=== PATIENT | male | born 1970 | race Caucasian/White ===

== ENCOUNTER 2017-07-02 23:41 | Inpatient (IN) | payer OTHER ==
[~2017-07-02] VITALS: Ht 175.3 cm; Wt 125.5 kg
[~2017-07-02 23:41] MED LIST: ALBUTEROL SULF8.5 GM IH; CLONAZEPAM0.5 MG PO; CYMBALTA60 MG PO; DIVALPROEX SOD250 M1 PO; DIVALPROEX SOD500 MG PO; LEVAQUIN750 MG PO; LIOTHYRONINE SO5 MCG PO; LORTAB 5-325 M1 EACH PO; MOTRIN600 MG PO; PREDNISONE20 MG PO; PROVENTIL HFA6.7 GM IH; REMERON30 M2 PO; REMERON45 MG PO; ROZEREM8 MG PO; ZITHROMAX Z-PA250 MG PO
[2017-07-03] VITALS (23 sets, daily range): BP systolic 86–126; BP diastolic 52–86
[2017-07-03 00:35] LABS: APPEARANCE CLEAR ((CLEAR)); BILIRUBIN NEGATIVE; BLOOD NEGATIVE; COLOR YELLOW ((YELLOW)); GLUCOSE (STRIP) NEGATIVE; KETONES NEGATIVE; LEUKOCYTES NEGATIVE; NITRITE NEGATIVE; PROTEIN (STRIP) NEGATIVE; SPECIFIC GRAVITY 1.015 (1.000-1.030); UCUL ADDED? NO; UROBILINOGEN 0.2 MG/DL (0.2-1.0)
[2017-07-03 00:38] LABS: BASOPHIL (%) 0.8 % (0-1); BASOPHIL COUNT 0.1 K/uL (0-0.1); EOSINOPHIL (%) 3.5 % (0-5); EOSINOPHIL COUNT 0.3 K/uL (0-0.3); HEMATOCRIT 41.5 % (38.0-50.0); HEMOGLOBIN 13.8 G/DL (12.5-16.6); IMMATURE GRANULOCYTE (%) 0.5 % (0.0-0.7); LYMPHOCYTE COUNT 1.9 K/uL (1.0-2.8); MCH 29.9 PG (29.0-34.0); MCHC 33.3 G/DL (30.0-36.0); MCV 89.8 FL (86-99); MONOCYTE (%) 6.3 % (3-12); MONOCYTE COUNT 0.5 K/uL (0-0.8); NEUTROPHIL (%) 63.9 % (45-76); NEUTROPHIL COUNT 4.7 K/uL (1.8-6.4); PLATELET COUNT 218 K/uL (156-360); RBC DIS.WIDTH-CV 12.9 % (11.8-14.6); RBC DIS.WIDTH-SD 42.1 % (39-53); RED BLOOD COUNT 4.62 M/uL (4.00-5.50); WHITE BLOOD COUNT 7.4 K/uL (4.1-10.2)
[2017-07-03 00:41] LABS: BASE EXCESS -4.9 mEq/L (-3 to +3); BICARBONATE 24.4 mEq/L (22-26); CARBOXY HGB 1.7 % (0-5); COMMENTS - BLOOD GASES C+; DEVICE VENT; FI02 100 %; MECHANICAL RATE 14 resp/min; METHEMOGLOBIN 0.8 % (0-1.5); MODE AC; PCO2 64 mm Hg (35-45); PEEP 5 CM/H20; PO2 194 mm Hg (80-100); SITE RR; TIDAL VOLUME 500 ML; TOTAL RESP RATE 14 resp/min; pH 7.19 (7.35-7.45)
[2017-07-03 00:45] LABS: AMPHETAMINE NEGATIVE (500 ng/mL); BARBITURATES NEGATIVE (200 ng/mL); BENZODIAZEPINES NEGATIVE (150 ng/mL); BUPRENORPHINE NEGATIVE (10 ng/mL); COCAINE NEGATIVE (150 ng/mL); METHADONE NEGATIVE (200 ng/mL); METHAMPHETAMINE NEGATIVE (500 ng/mL); OPIATES (MORPHINE) NEGATIVE (100 ng/mL); OXYCODONE NEGATIVE (100 ng/mL); PHENCYCLIDINE NEGATIVE (25 ng/mL); PROPOXYPHENE NEGATIVE (300 ng/mL); THC CANNABINOIDS NEGATIVE (50 ng/mL); TRICYCLIC ANTIDEPRESSANTS PRESUMPTIVE POSITIVE (300 ng/mL)
[2017-07-03 00:48] LABS: ALBUMIN 3.4 g/dL (3.2-4.8); CHLORIDE 103 mEq/L (99-109); POTASSIUM 3.9 mEq/L (3.7-5.4); SODIUM 135 mEq/L (136-147)
[2017-07-03 00:50] LABS: GLUCOSE 148 mg/dL (70-99)
[2017-07-03 00:51] LABS: TOTAL PROTEIN 6.5 g/dL (6.4-8.3)
[2017-07-03 00:52] LABS: TOTAL BILIRUBIN 0.3 mg/dL (0.0-1.0)
[2017-07-03 00:53] LABS: SERUM ETHYL ALCOHOL < 10 mg/dL
[2017-07-03 00:54] LABS: CREATININE 1.2 mg/dL (0.6-1.3); GFR ESTIMATE (CALCULATED) > 59 mL/min/ (58.99-99999)
[2017-07-03 00:55] LABS: ALKALINE PHOSPHATASE 77 IU/L (3-129)
[2017-07-03 00:56] LABS: AST (GOT) 15 IU/L (2-34); UREA NITROGEN (BUN) 12 mg/dL (9-23)
[2017-07-03 00:57] LABS: SALICYLATE < 5.0 MG/DL (15-30)
[2017-07-03 00:58] LABS: ACETAMINOPHEN (TYLENOL) < 10 mcg/mL (10-30); ALT (GPT) 13 IU/L (3-49); CREATINE KINASE 145 IU/L (1-294); TOTAL CK 145 IU/L (1-294)
[2017-07-03 01:04] LABS: CK-MB 1.2 ng/mL (0.0-4.9); CKMB RELATIVE INDEX 0.8 (0.0-3.9)
[2017-07-03] MEDS ORDERED: PRAZOSIN HCL1 MG PO (01:43)
[2017-07-03] MEDS ORDERED: ZOLOFT50 MG PO (01:44)
[2017-07-03] MEDS ORDERED: WELLBUTRIN XL150 MG PO (01:45)
[2017-07-03] MEDS ORDERED: ZOLOFT100 MG PO (01:48)
[2017-07-03] MEDS ORDERED: LAMOTRIGINE100 M1 PO (01:49)
[2017-07-03] MEDS ORDERED: SEROQUEL50 MG PO (01:49)
[2017-07-03] MEDS ORDERED: LATUDA20 MG PO (01:52)
[2017-07-03] MEDS ORDERED: LATUDA40 MG PO (01:54)
[2017-07-03 02:15] LABS: BASE EXCESS -6.3 mEq/L (-3 to +3); CARBOXY HGB 0.8 % (0-5); METHEMOGLOBIN 0.9 % (0-1.5)
[2017-07-03 02:16] LABS: PCO2 55 mm Hg (35-45); pH 7.21 (7.35-7.45)
[2017-07-03 02:17] LABS: COMMENTS - BLOOD GASES C+; DEVICE VENT; FI02 100 %; MECHANICAL RATE 14 resp/min; MODE AC; PEEP 5 CM/H20; SITE RR; TIDAL VOLUME 500 ML; TOTAL RESP RATE 14 resp/min
[2017-07-03 03:00] LABS: TROP-I INTERPRETATION NEGATIVE; TROPONIN-I < 0.01 ng/mL (0.0-0.30)
[2017-07-03 05:34] LABS: BASE EXCESS -9.3 mEq/L (-3 to +3); BICARBONATE 19.4 mEq/L (22-26); CARBOXY HGB 1.5 % (0-5); COMMENTS - BLOOD GASES C+A+; DEVICE VENT; FI02 100 %; MECHANICAL RATE 18 resp/min; METHEMOGLOBIN 1.5 % (0-1.5); MODE AC; PCO2 52 mm Hg (35-45); PO2 238 mm Hg (80-100); SITE LR; TOTAL RESP RATE 31 resp/min
[2017-07-03 05:35] LABS: PEEP 5 CM/H20; TIDAL VOLUME 500 ML; pH 7.18 (7.35-7.45)
[2017-07-03 05:59] LABS: BASOPHIL (%) 0.2 % (0-1); EOSINOPHIL (%) 0.6 % (0-5); EOSINOPHIL COUNT 0.1 K/uL (0-0.3); HEMATOCRIT 43.8 % (38.0-50.0); HEMOGLOBIN 13.8 G/DL (12.5-16.6); IMMATURE GRANULOCYTE (%) 0.2 % (0.0-0.7); LYMPHOCYTE (%) 9.4 % (15-42); LYMPHOCYTE COUNT 0.9 K/uL (1.0-2.8); MCHC 31.5 G/DL (30.0-36.0); MONOCYTE (%) 2.3 % (3-12); MONOCYTE COUNT 0.2 K/uL (0-0.8); NEUTROPHIL (%) 87.3 % (45-76); NEUTROPHIL COUNT 8.3 K/uL (1.8-6.4); PLATELET COUNT 247 K/uL (156-360); RBC DIS.WIDTH-SD 43.7 % (39-53); RED BLOOD COUNT 4.76 M/uL (4.00-5.50); WHITE BLOOD COUNT 9.5 K/uL (4.1-10.2)
[2017-07-03 06:27] LABS: CHLORIDE 106 MEQ/L (99-109); MAGNESIUM 1.8 mg/dl (1.3-2.7); SODIUM 140 MEQ/L (136-147)
[2017-07-03 06:28] LABS: POTASSIUM 4.8 MEQ/L (3.7-5.4)
[2017-07-03 06:33] LABS: CREATININE 1.4 MG/DL (0.6-1.3); GFR ESTIMATE (CALCULATED) 57 mL/min/ (58.99-99999); GLUCOSE 133 mg/dL (70-99); PHOSPHORUS 5.1 mg/dL (2.5-4.9); UREA NITROGEN (BUN) 13 mg/dL (9-23)
[2017-07-04] VITALS (27 sets, daily range): BP systolic 98–165; BP diastolic 53–77
[2017-07-04 04:15] LABS: BASOPHIL (%) 0.1 % (0-1); EOSINOPHIL (%) 0 % (0-5); HEMOGLOBIN 11.9 G/DL (12.5-16.6); IMMATURE GRANULOCYTE (%) 0.7 % (0.0-0.7); LYMPHOCYTE (%) 2.8 % (15-42); LYMPHOCYTE COUNT 0.4 K/uL (1.0-2.8); MCH 29.5 PG (29.0-34.0); MCHC 33.1 G/DL (30.0-36.0); MCV 89.3 FL (86-99); MONOCYTE (%) 3.1 % (3-12); MONOCYTE COUNT 0.5 K/uL (0-0.8); NEUTROPHIL (%) 93.3 % (45-76); NEUTROPHIL COUNT 14.2 K/uL (1.8-6.4); PLATELET COUNT 222 K/uL (156-360); RBC DIS.WIDTH-CV 13.5 % (11.8-14.6); RBC DIS.WIDTH-SD 44.5 % (39-53); RED BLOOD COUNT 4.03 M/uL (4.00-5.50); WHITE BLOOD COUNT 15.2 K/uL (4.1-10.2)
[2017-07-04 04:29] LABS: CHLORIDE 109 mEq/L (99-109); POTASSIUM 4.5 mEq/L (3.7-5.4); SODIUM 140 mEq/L (136-147)
[2017-07-04 04:30] LABS: MAGNESIUM 2.4 mg/dL (1.3-2.7)
[2017-07-04 04:31] LABS: GLUCOSE 169 mg/dL (70-99)
[2017-07-04 04:35] LABS: CREATININE 1.8 mg/dL (0.6-1.3); GFR ESTIMATE (CALCULATED) 43 mL/min/ (58.99-99999); PHOSPHORUS 2.5 mg/dL (2.5-4.9)
[2017-07-04 04:36] LABS: UREA NITROGEN (BUN) 19 mg/dL (9-23)
[2017-07-05 03:40] VITALS: BP 117/71
[2017-07-05 08:12] VITALS: BP 128/67
[2017-07-05 10:36] LABS: CHLORIDE 109 MEQ/L (99-109); CREATININE 1.6 MG/DL (0.6-1.3); GFR ESTIMATE (CALCULATED) 49 mL/min/ (58.99-99999); GLUCOSE 120 mg/dL (70-99); POTASSIUM 4.4 MEQ/L (3.7-5.4); SODIUM 141 MEQ/L (136-147); UREA NITROGEN (BUN) 22 mg/dL (9-23)
[2017-07-05 11:33] LABS: Estimated Average Glucose 114 mg/dL (70-123); HEMOGLOBIN A1c (GLYCOHEMOGLOB) 5.6 % HGB (Below 5.7)
[2017-07-05 12:00] VITALS: BP 141/76
[2017-07-05 15:50] VITALS: BP 131/77
[2017-07-05 19:46] VITALS: BP 136/77
[2017-07-05 23:26] VITALS: BP 137/72
[2017-07-06 04:48] VITALS: BP 140/81
[2017-07-06 06:08] LABS: CHLORIDE 105 MEQ/L (99-109); CREATININE 1.5 MG/DL (0.6-1.3); GFR ESTIMATE (CALCULATED) 53 mL/min/ (58.99-99999); GLUCOSE 134 mg/dL (70-99); POTASSIUM 4.8 MEQ/L (3.7-5.4); SODIUM 139 MEQ/L (136-147); UREA NITROGEN (BUN) 22 mg/dL (9-23)
[2017-07-06 08:20] VITALS: BP 135/78
[2017-07-06 11:15] VITALS: BP 136/71
[2017-07-06 15:57] VITALS: BP 143/69
[2017-07-06 19:32] VITALS: BP 128/61
[2017-07-06 23:22] VITALS: BP 142/83
[2017-07-07 04:42] VITALS: BP 131/76
[2017-07-07 05:58] LABS: CHLORIDE 102 MEQ/L (99-109); CREATININE 1.6 MG/DL (0.6-1.3); GFR ESTIMATE (CALCULATED) 49 mL/min/ (58.99-99999); GLUCOSE 115 mg/dL (70-99); POTASSIUM 4.7 MEQ/L (3.7-5.4); SODIUM 137 MEQ/L (136-147); UREA NITROGEN (BUN) 25 mg/dL (9-23)
[2017-07-07 07:09] LABS: HEMATOCRIT 38.7 % (38.0-50.0); HEMOGLOBIN 12.5 G/DL (12.5-16.6); MCH 29.3 PG (29.0-34.0); MCHC 32.3 G/DL (30.0-36.0); MCV 90.6 FL (86-99); PLATELET COUNT 283 K/uL (156-360); RBC DIS.WIDTH-CV 13.6 % (11.8-14.6); RBC DIS.WIDTH-SD 45.2 % (39-53); RED BLOOD COUNT 4.27 M/uL (4.00-5.50); WHITE BLOOD COUNT 13.5 K/uL (4.1-10.2)
[2017-07-07 08:16] VITALS: BP 120/79
[2017-07-07 12:43] VITALS: BP 127/69
[2017-07-07 16:19] VITALS: BP 119/62
[2017-07-07 19:39] VITALS: BP 128/75
[2017-07-07 23:35] VITALS: BP 123/71
[2017-07-08 04:15] VITALS: BP 127/74
[2017-07-08 06:00] LABS: BASOPHIL (%) 0.3 % (0-1); EOSINOPHIL (%) 1.3 % (0-5); EOSINOPHIL COUNT 0.2 K/uL (0-0.3); HEMATOCRIT 40.8 % (38.0-50.0); HEMOGLOBIN 13.1 G/DL (12.5-16.6); IMMATURE GRANULOCYTE (%) 1.1 % (0.0-0.7); LYMPHOCYTE (%) 18.9 % (15-42); LYMPHOCYTE COUNT 2.5 K/uL (1.0-2.8); MCHC 32.1 G/DL (30.0-36.0); MCV 90.5 FL (86-99); MONOCYTE (%) 9.1 % (3-12); MONOCYTE COUNT 1.2 K/uL (0-0.8); NEUTROPHIL (%) 69.3 % (45-76); NEUTROPHIL COUNT 9.2 K/uL (1.8-6.4); PLATELET COUNT 254 K/uL (156-360); RBC DIS.WIDTH-CV 13.3 % (11.8-14.6); RBC DIS.WIDTH-SD 44.4 % (39-53); RED BLOOD COUNT 4.51 M/uL (4.00-5.50); WHITE BLOOD COUNT 13.3 K/uL (4.1-10.2)
[2017-07-08 06:33] LABS: ALBUMIN 2.7 G/DL (3.2-4.8); ALKALINE PHOSPHATASE 49 IU/L (3-129); ALT (GPT) 32 IU/L (3-49); AST (GOT) 18 IU/L (2-34); CHLORIDE 105 MEQ/L (99-109); CREATININE 1.7 MG/DL (0.6-1.3); GFR ESTIMATE (CALCULATED) 46 mL/min/ (58.99-99999); GLUCOSE 74 mg/dL (70-99); POTASSIUM 4.2 MEQ/L (3.7-5.4); SODIUM 140 MEQ/L (136-147); TOTAL BILIRUBIN 0.3 MG/DL (0.0-1.0); TOTAL PROTEIN 5.2 G/DL (6.4-8.3); UREA NITROGEN (BUN) 27 mg/dL (9-23)
[2017-07-08 08:04] VITALS: BP 125/75
[2017-07-08 12:07] VITALS: BP 134/71
[2017-07-08 16:28] VITALS: BP 114/71
[2017-07-08 20:01] VITALS: BP 136/80
[2017-07-08 23:50] VITALS: BP 123/60
[2017-07-09 03:47] VITALS: BP 128/65
[2017-07-09 07:25] VITALS: BP 113/69
[2017-07-09 11:57] VITALS: BP 110/64
[2017-07-09 12:13] LABS: HEMATOCRIT 43.7 % (38.0-50.0); HEMOGLOBIN 14.8 G/DL (12.5-16.6); MCH 30.1 PG (29.0-34.0); MCHC 33.9 G/DL (30.0-36.0); MCV 88.8 FL (86-99); PLATELET COUNT 261 K/uL (156-360); RBC DIS.WIDTH-CV 13.3 % (11.8-14.6); RBC DIS.WIDTH-SD 43.2 % (39-53); RED BLOOD COUNT 4.92 M/uL (4.00-5.50); WHITE BLOOD COUNT 12.2 K/uL (4.1-10.2)
[2017-07-09 12:36] LABS: CHLORIDE 103 MEQ/L (99-109); CREATININE 1.5 MG/DL (0.6-1.3); GFR ESTIMATE (CALCULATED) 53 mL/min/ (58.99-99999); GLUCOSE 84 mg/dL (70-99); POTASSIUM 4.6 MEQ/L (3.7-5.4); SODIUM 137 MEQ/L (136-147); UREA NITROGEN (BUN) 26 mg/dL (9-23)
[2017-07-09] MEDS ORDERED: PREDNISONE20 MG PO (14:31)
[2017-07-09] MEDS ORDERED: BUPROPION XL300 MG PO (14:31)
[2017-07-09] MEDS ORDERED: CLONAZEPAM0.5 MG PO (14:31)
[2017-07-09 15:34] VITALS: BP 129/71
[2017-07-09] MEDS ORDERED: TYLENOL REGULA325 MG PO (19:39)
[2017-07-09] MEDS ORDERED: PERIDEX473 ML MM (19:41)
[2017-07-09] MEDS ORDERED: ELIQUIS5 MG PO (19:45)
[2017-07-09] MEDS ORDERED: ACID CONTROLLER20 MG PO (19:46)
== END 2017-07-09 17:51 | DRG 917 ==
LOC: EME → EDBD 23:41 → EME 23:41 → 3EAST 07-03 01:36 → 4WEST 07-03 01:36 → ENRESERV 07-03 01:36 → EDOF 07-03 01:36 → ENRESERV 07-03 01:48 → 4WEST 07-03 04:43 → ENRESERV 07-04 17:12 → 4WEST 07-04 17:13 → ENRESERV 07-04 19:21 → 3EAST 07-04 22:55
PROVIDERS: Emergency Medicine; Hospitalist; Physician Assistant; Specialist
PROC: 5A1945Z Respiratory Ventilation, 24-96 Consecutive Hours (ICD-10-PCS; principal; 2017-07-03)
PROC: 0BH17EZ Insertion of Endotracheal Airway into Trachea, Via Natural or Artificial Opening (ICD-10-PCS; 2017-07-03)
DX: T43.592A Poisoning by other antipsychotics and neuroleptics, intentional self-harm, initial encounter (principal); T42.4X2A Poisoning by benzodiazepines, intentional self-harm, initial encounter; T42.6X2A Poisoning by other antiepileptic and sedative-hypnotic drugs, intentional self-harm, initial encounter; T43.292A Poisoning by other antidepressants, intentional self-harm, initial encounter; J96.01 Acute respiratory failure with hypoxia; J96.02 Acute respiratory failure with hypercapnia; J69.0 Pneumonitis due to inhalation of food and vomit; J45.901 Unspecified asthma with (acute) exacerbation; N17.9 Acute kidney failure, unspecified; I82.492 Acute embolism and thrombosis of other specified deep vein of left lower extremity; F33.2 Major depressive disorder, recurrent severe without psychotic features; F43.10 Post-traumatic stress disorder, unspecified; F43.25 Adjustment disorder with mixed disturbance of emotions and conduct; I10 Essential (primary) hypertension; Z91.5 Personal history of self-harm
CPT/HCPCS: 36600; 70450; 71045; 76770; 78582; 80048; 80048 91; 80053; 81003; 82550; 82553; 82803; 82948; 83036; 83605; 83735; 84100; 84484; 85025; 85025 91; 85027; 87070; 87205; 87641; 93005; 93970; 94002; 94003; 94640 76; 94799; 99202; 99281; 99285; A9540; A9567; G0480; J0295; J1644; J1650; J1815; J2405; J2543; J2704; J2920; J2930; J3010; J3475; J7030; J7050; J7120; J7512; S0028

== ENCOUNTER 2017-07-09 17:31 | Inpatient (IN) | payer OTHER ==
[~2017-07-09] VITALS: Ht 175.3 cm; Wt 125.5 kg
[~2017-07-09 17:31] MED LIST changes: +BUPROPION XL300 MG PO; +LAMOTRIGINE100 M1 PO; +LATUDA20 MG PO; +LATUDA40 MG PO; +PRAZOSIN HCL1 MG PO; +SEROQUEL50 MG PO; +WELLBUTRIN XL150 MG PO; +ZOLOFT100 MG PO; +ZOLOFT50 MG PO
[2017-07-09 18:08] VITALS: BP 133/76
[2017-07-09 19:32] VITALS: BP 133/76
[2017-07-09] MEDS ORDERED: TYLENOL REGULA325 MG PO (19:39)
[2017-07-09] MEDS ORDERED: PERIDEX473 ML MM (19:41)
[2017-07-09] MEDS ORDERED: ELIQUIS5 MG PO (19:45)
[2017-07-09] MEDS ORDERED: ACID CONTROLLER20 MG PO (19:46)
[2017-07-10 07:28] VITALS: BP 122/68
[2017-07-10 16:09] VITALS: BP 120/64
[2017-07-11 08:03] VITALS: BP 132/94
[2017-07-11 16:49] VITALS: BP 119/59
[2017-07-12 07:53] VITALS: BP 129/67
[2017-07-12] MEDS ORDERED: PREDNISONE10 MG PO (09:50)
[2017-07-12] MEDS ORDERED: PRAZOSIN HCL1 MG PO (09:50)
[2017-07-12] MEDS ORDERED: ELIQUIS5 MG PO (09:50)
[2017-07-12] MEDS ORDERED: ARIPIPRAZOLE10 MG PO (09:50)
== END 2017-07-12 11:25 | disposition home or self-care (01) | DRG 885 ==
LOC: 1WEST 17:31 → ENRESERV 17:32 → 1WEST 17:55
DX: F33.2 Major depressive disorder, recurrent severe without psychotic features (principal); F43.10 Post-traumatic stress disorder, unspecified; F41.1 Generalized anxiety disorder; J45.909 Unspecified asthma, uncomplicated; T42.4X2D Poisoning by benzodiazepines, intentional self-harm, subsequent encounter; T42.6X2D Poisoning by other antiepileptic and sedative-hypnotic drugs, intentional self-harm, subsequent encounter; T43.292D Poisoning by other antidepressants, intentional self-harm, subsequent encounter; Z63.0 Problems in relationship with spouse or partner; Z62.810 Personal history of physical and sexual abuse in childhood; Z91.5 Personal history of self-harm
CPT/HCPCS: 94640 76; 99202; J7512

== ENCOUNTER 2017-07-20 17:07 | Emergency (ER) | payer OTHER ==
[~2017-07-20] VITALS: Ht 175.3 cm; Wt 111.7 kg
[~2017-07-20 17:07] MED LIST changes: +ACID CONTROLLER20 MG PO; +ARIPIPRAZOLE10 MG PO; +ELIQUIS5 MG PO; +PERIDEX473 ML MM; +PREDNISONE10 MG PO; +TYLENOL REGULA325 MG PO
[2017-07-20] MEDS ORDERED: ULTRAM50 MG PO (19:29)
[2017-07-20 19:56] VITALS: BP 122/82
== END 2017-07-20 19:57 | disposition home or self-care (01) ==
LOC: EME 17:07
DX: M79.661 Pain in right lower leg (principal); F43.10 Post-traumatic stress disorder, unspecified; F32.9 Major depressive disorder, single episode, unspecified; J45.909 Unspecified asthma, uncomplicated; Z86.718 Personal history of other venous thrombosis and embolism
CPT/HCPCS: 93971

== ENCOUNTER 2017-07-23 18:40 | Emergency (ER) | payer OTHER ==
[~2017-07-23] VITALS: Ht 175.3 cm; Wt 112.2 kg
[~2017-07-23 18:40] MED LIST changes: +ULTRAM50 MG PO
[2017-07-23] MEDS ORDERED: AMBIEN5 MG PO (20:31)
[2017-07-23 20:52] VITALS: BP 142/86
== END 2017-07-23 20:53 | disposition home or self-care (01) ==
LOC: RME 18:40 → EME 18:40 → RME 20:53
DX: F41.9 Anxiety disorder, unspecified (principal); Z91.5 Personal history of self-harm; F32.9 Major depressive disorder, single episode, unspecified; F31.9 Bipolar disorder, unspecified; J45.909 Unspecified asthma, uncomplicated

== ENCOUNTER 2017-08-16 16:41 | Emergency (ER) | payer OTHER ==
[~2017-08-16] VITALS: Ht 175.3 cm; Wt 112.7 kg
[~2017-08-16 16:41] MED LIST changes: +AMBIEN5 MG PO
[2017-08-16 17:39] LABS: HEMATOCRIT 41.1 % (38.0-50.0); HEMOGLOBIN 14.2 G/DL (12.5-16.6); MCH 30.6 PG (29.0-34.0); MCHC 34.5 G/DL (30.0-36.0); MCV 88.6 FL (86-99); PLATELET COUNT 260 K/uL (156-360); RBC DIS.WIDTH-CV 13.2 % (11.8-14.6); RBC DIS.WIDTH-SD 42.8 % (39-53); RED BLOOD COUNT 4.64 M/uL (4.00-5.50); WHITE BLOOD COUNT 9.9 K/uL (4.1-10.2)
[2017-08-16 17:51] LABS: CHLORIDE 108 mEq/L (99-109); POTASSIUM 3.8 mEq/L (3.7-5.4); SODIUM 141 mEq/L (136-147)
[2017-08-16 17:52] LABS: GLUCOSE 94 mg/dL (70-99)
[2017-08-16 17:56] LABS: CREATININE 1.5 mg/dL (0.6-1.3); GFR ESTIMATE (CALCULATED) 53 mL/min/ (58.99-99999)
[2017-08-16 17:57] LABS: UREA NITROGEN (BUN) 15 mg/dL (9-23)
[2017-08-16 18:02] LABS: TROP-I INTERPRETATION NEGATIVE; TROPONIN-I < 0.01 ng/mL (0.0-0.30)
[2017-08-16 21:29] VITALS: BP 129/78
== END 2017-08-16 21:30 | disposition home or self-care (01) ==
LOC: EME 16:41
DX: I12.9 Hypertensive chronic kidney disease with stage 1 through stage 4 chronic kidney disease, or unspecified chronic kidney disease (principal); N18.3 Chronic kidney disease, stage 3 (moderate); I45.10 Unspecified right bundle-branch block; Z73.3 Stress, not elsewhere classified
CPT/HCPCS: 71046; 80048; 84484; 85027; 93005; 99281; 99284